=== PATIENT | male | born 1975 | race Caucasian/White ===

== ENCOUNTER 2024-07-26 21:21 | Inpatient (IN) | payer SELFPAY ==
[2024-07-27 00:49] VITALS: BMI 27.2
[2024-07-27] MEDS ORDERED: Dextrose 5% in Water 1,000 ML IV PRN (01:34)
[2024-07-27] MEDS ORDERED: Ondansetron PF 4 MG/2 ML Vial IVP PRN (01:34)
[2024-07-27] MEDS ORDERED: Dextrose 50% Abboject 50 ML SYRINGE SLOW IVP PRN (01:34)
[2024-07-27] MEDS ORDERED: Promethazine HCl 25 MG/ML VIAL IM PRN (01:34)
[2024-07-27] MEDS ORDERED: Glucagon 1 MG/ML KIT IM PRN (01:34)
[2024-07-27] MEDS: Morphine 4 MG/ML VIAL SLOW IVP PRN (01:55)
[2024-07-27] MEDS: Sodium Chloride 0.9% 1,000 ML IV SCH (02:04)
[2024-07-27 05:32] LABS: #Basophils 0.06 10x3/uL (0.0-0.2); %Basophils 0.8 % (0.0-1.0); %Eosinophils 3.8 % (0.0-10.0); %Lymphocytes 20.5 % (21.0-51.0); %Monocytes 9.9 % (0.0-10.0); %Neutrophils 64.6 % (42.0-75.0); Anion Gap 13 mmol/L (10-20); BUN (Urea Nitrogen) 12 mg/dL (8.9-20.6); Calc. Creatinine Clearance 162 mL/min (70-130); Calcium 9.1 mg/dL (7.8-10.44); Carbon Dioxide 27 mmol/L (22-29); Chloride 103 mmol/L (98-107); Estimated GFR 112; Glucose 93 mg/dL (70-105); Hematocrit 36.1 % (42.0-52.0); Hemoglobin 12.2 g/dL (14.0-18.0); Mean Corpuscular HGB CONC 33.8 g/dL (32.0-36.0); Mean Corpuscular Hemoglobin 30.3 pg (27.0-31.0); Mean Corpuscular Volume 89.6 fL (78.0-98.0); Platelet Count 250 10x3/uL (130-400); Potassium 3.5 mmol/L (3.5-5.1); RBC Distribution Width 12.7 % (11.5-14.5); Red Blood Cell (RBC) Count 4.03 mill/uL (4.70-6.10); Sodium 139 mmol/L (136-145)
[2024-07-27] MEDS: traMADol HCl 50 MG TAB PO PRN (11:43)
[2024-07-28] MEDS: Acetaminophen 325 MG TAB PO PRN (15:06)
[2024-07-29 08:34] VITALS: BP 146/88; TEMP 97.9
== END 2024-07-29 08:15 | disposition home or self-care (01) | DRG 551 ==
LOC: SURG A 07-27 00:31
PROVIDERS: ADMIT Surgery; ATTEND Surgery
DX: S32.019A Unspecified fracture of first lumbar vertebra, initial encounter for closed fracture (principal); S27.2XXA Traumatic hemopneumothorax, initial encounter; S22.41XA Multiple fractures of ribs, right side, initial encounter for closed fracture; S27.321A Contusion of lung, unilateral, initial encounter; S32.029A Unspecified fracture of second lumbar vertebra, initial encounter for closed fracture; S32.039A Unspecified fracture of third lumbar vertebra, initial encounter for closed fracture; V80.010A Animal-rider injured by fall from or being thrown from horse in noncollision accident, initial encounter; S42.101A Fracture of unspecified part of scapula, right shoulder, initial encounter for closed fracture
CPT/HCPCS: 36415; 71045; 76376; 80048; 85025; J2272; J7030